=== PATIENT | female | born 1995 | race Hispanic/Latino ===

== ENCOUNTER 2021-02-19 05:09 | Inpatient (IN) | payer OTHER ==
[2021-02-19] VITALS (57 sets, daily range): BP systolic 113–186; BP diastolic 56–96
[~2021-02-19] VITALS: Ht 152.4 cm; Wt 68.2 kg
[2021-02-19] MEDS ORDERED: OXYTOCIN INJ 10 UNITS/ML VIAL (J2590) IV PRN (06:20)
[2021-02-19] MEDS ORDERED: OXYTOCIN DRIP 30 UNITS in IV 1 EA IV PRN ×4 (06:20)
[2021-02-19] MEDS ORDERED: METHYLERGONOVINE MALEATE 0.2 MG/ML VIAL (J2210) IM PRN (06:20)
[2021-02-19] MEDS ORDERED: LACTATED RINGER'S 1000 ML IV ONE (06:20)
[2021-02-19 06:47] LABS: HEMATOCRIT 39.4 % (36.0-47.0); HEMOGLOBIN 13.6 g/dl (12.0-15.5); MEAN CORPUSCULAR HEMOGLOBIN 31.3 pg (27.0-33.0); MEAN CORPUSCULAR HGB CONC 34.5 g/dl (32.0-36.5); MEAN CORPUSCULAR VOLUME 90.8 fl (80.0-96.0); PLATELET COUNT, AUTOMATED 202 10^3/uL (150-450); RED BLOOD COUNT 4.34 10^6/uL (4.00-5.40); WHITE BLOOD COUNT 12.1 10^3/uL (4.0-10.0)
[2021-02-19] MEDS ORDERED: PRENTAB9 PO (06:57)
[2021-02-19] MEDS ORDERED: FERR325T3 PO (06:58)
[2021-02-19] MEDS ORDERED: FENTANYL 2MCG/ML ROPIVACAINE 0.2% IN 0.9% NACL 100ML IVBAG As Ordered ONE (07:14)
[2021-02-19] MEDS ORDERED: FIORICET TAB PO ONE (07:50)
[2021-02-19] MEDS ORDERED: ONDANSETRON 4MG/2ML VIAL IV ONE (07:50)
[2021-02-19] MEDS: LR 1,000 ML IV SCH ×3 (08:14→19:35)
--- NOTE | 2021-02-19 08:54 | HPEPDOC ---
Obstetrical History & Physical General Date of Admission Item Value Date Time White Blood Count 12.1 10^3/uL H 02/19/21 0620 Red Blood Count 4.34 10^6/uL 02/19/21 0620 Hemoglobin 13.6 g/dl 02/19/2120 Hematocrit 39.4 % 02/19/21619 Mean Corpuscular Volume 90.8 fl 02/19/21619 Mean Corpuscular Hemoglobin 31.3 pg 02/19/21619 Mean Corpuscular Hemoglobin Concent 34.5 g/dl 02/19/21619 Red Cell Distribution Width 13.5 % 02/19/21619 Platelet Count 202 10^3/uL 02/19/21 0620 Feb 19, 2021 at 06:17 Primary Care Physician: Adrian Blair MD History of Present Illness active contractions with show at 40.3 weeks Chief Complaint: Contractions, term Information Provided By: Patient Age: 25 : 3 Term: 0 Pre-term: 0 Abortions: 2 Livin Care Care: Good Care Number of Visits: 5 Dating Final EDC: Feb 14, 2021 Final EDC for Daily Update: Feb 14, 2021 LMP: May 04, 2020 Estimated Date of Confinement: Feb 14, 2021 EGA at Admission: 40.3 Antepartum Course Diagnos(e)s active labor post dates negative gbs Height (inches): 61 Pre- weight (lbs.): 142 Admission Weight (lbs.): 150 Change in Weight (lbs.): 8 Past Medical History Past Obstetrical History : Past Obstetrical History: [employer] History: No pertinent history, Spontaneous Past Medical History Medical History no medical issues Surgical History: Denies/None Family History Significant Family History: No pertinent family hx Social History Social history active duty non smoker no etoh no vaping no recreational drugs Marital Status: Family situation: Spouse/partner home Psychosocial History: No pertinent psych hx * Smoker: non-smoker Alcohol: Denies Drugs: denies Abuse Violence Screening Have you been hit/kicked/slapp: No Have you been sexually assault: No Imunizations Tdap status: current Influenza Status: current Allergies Coded Allergies: No Known Allergies (Unverified , 02/19/21) Medications Scheduled No.137/Iron/Folic Acd ( Vitamin Tablet) 1 Each Tablet, 1 TAB PO DAILY Miscellaneous Medications Ferrous Sulfate (Ferrous Sulfate) 325 Mg Tablet.dr, 325 MG PO Physical Examination Physical Examination GENERAL: Alert and oriented times three. BREAST: . ABDOMEN: Gravid and non-tender to touch. FETUS: Is vertex (VTX) by sterile vaginal examination (SVE), fetus is vertex (VTX) by Guzman. HEART RATE: Regular rate and rhythm. LUNGS: Clear to auscultation (CTA). EXTREMITIES: No edema. No clonus. Deep tendon reflexes (DTRs) + . Other physical findings normocephalic perrla atraumatic neck full range of motion chest hrr distal pulses symmetric, lungs cta no wheeze no rhonchii back no cva tenderness abdomen non tender sf height appropriate vertex no rash no lesions no puritis no arthralgia no myalgia no joint pain no bruising no bleeding no frequency no incontinence Vital Signs/I&O Vital Signs Date Time Temp Pulse Resp B/P (MAP) Pulse Ox O2 Delivery O2 Flow Rate FiO2 02/19/21 06:57 99.0 96 18 147/79 (101) Laboratory Data 24H LABS Laboratory Tests 2 02/19/21 06:20: Nucleated Red Blood Cells % (auto) 0.0 02/19/21 06:49: Serology Scanned Report Hepatitis B Testing CBC/BMP Laboratory Tests 02/19/21 06:20 Pertinent Laboratoy Data Blood Type: B+ RBC Antibody Screen: Negative HIV: Negative Hepatitis B: Negative Rapid Plasma Reagin: Nonreactive Rubella: Immune Varicella: Nonreactive Chlamydia/Gonorrhea: Negative Group B Streptococcus: Negative Cystic Fibrosis: Negative Anatomy Ultrasound Ultrasound Date: Jul 21, 2020 Placenta Location: Anterior Normal Anatomy: Yes Placenta Previa: No Steroid Therapy Steroid Therapy: No Vaginal Examination Dilation: 2cm Effacement: 50% Station: -3 Cervical Consistency: Soft Cervical Position: Posterior Presentation: Cephalic presentation Assessment Variability: Moderate Accelerations: Present Decelerations: None Tocometer Contractions: Yes Frequency: every 1-3 min. Duration: less than 60 seconds Strength: palpated as moderate Assessment/Plan Assessment 25year-old (G3 para (P)0at 40.3 weeks by 10,2-week ultrasound. Presents to Labor and Delivery (L&D) . Plan Admit and orient. Spot Welder Line and consent. Diet: .npo Group B Streptococcus (GBS) [negative]. Labs and intravenous (IV) per unit protocol. Counseled on Pitocin and induction of labor (IOL). Lactated Ringers (LR): Bolus 1000 mL, then at 125 mL/hr. Anticipate [normal spontaneous delivery ()]. C-S as appropriate. Labor and Delivery Counseling reviewed vaginal delivery spontaneous or assisted vaginal risk of hemorrhage infection perforation remote blood transfusion remote hysterectomy for life threatening condition forceps or vacuum for or maternal indications when immanent delivery is not able cs for maternal or ind ications augmentation tachysystole increase risk cs and admission nicu Adrian Blair MD Feb 19, 2021 08:11
[2021-02-19] MEDS ORDERED: FAMOTIDINE INJ 20MG/2ML VIAL (S0028 PER 1) IVP ONE (09:00)
[2021-02-19 09:03] LABS: TOTAL PROTEIN,RANDOM URINE 77.3 MG/DL (0.0-12.0)
[2021-02-19] MEDS ORDERED: MAG Sulf (L&D) 4 GM/100 ML 4 GM in IV 1 EA IV ONE (09:55)
--- NOTE | 2021-02-19 10:11 | IPNPDOC ---
Obstetrical Progress Note Date of Service Feb 19, 2021 Subjective 25 yo at 40w5d admitted for labor with new onset and ruled in for pre- eclampsia with severe features with mildly elevated BPs, headache that is unrelieved with Fioricet and IV fluid bolus, and elevated P/C ratio of 0.47. I discussed diagnosis with her and her spouse and recommendations to start magnesium sulfate IV. We discussed the side effects and indications for magnesium sulfate. She desires for epidural for pain management. She continues to have headache and denies chest pain, RUQ pain, and visual changes. Objective Vital Signs Date Time Temp Pulse Resp B/P (MAP) Pulse Ox O2 Delivery O2 Flow Rate FiO2 02/19/21 09:21 100 118/62 (80) 02/19/21 08:52 100.0 18 Assessment Heart Rate (FHR): 155 Variability: Moderate Accelerations: Present Decelerations: None Tocometer Contractions: Yes Frequency: irregular (every 5-7 minutes) Assessment and Plan Age: 25 : 3 Term: 0 Pre-term: 0 Abortions: 2 Livin Weeks & Days 40w5d Group B Streptococcus: Negative Additional Comments Assessment: IUP at 40w5d Pre-eclampsia with severe features Active labor Plan: Start magnesium sulfate IV Coordinate with anesthesia for epidural placement Plan to re-evaluate cervical exam once she is comfortable with her epidural Dr. Jain updated on patient status and agrees with the plan EMELIA ARBOLEDA CNM Feb 19, 2021 10:11
[2021-02-19] MEDS: MAG Sulf (OBGYN) 20GM/500ML 20,000 MG in IV 1 EA IV SCH ×2 (10:12→19:35)
[2021-02-19] MEDS ORDERED: ePHEDrine SULFATE 25 MG/5 ML(5MG/ML) SYRINGE IV PRN (10:45)
[2021-02-19] MEDS ORDERED: EPIDURAL/PCA KEYS XX PRN (10:45)
[2021-02-19] MEDS ORDERED: NALOXONE INJ 0.4MG/1ML VIAL (J2310 PER 1MG) IV PRN ×3 (10:45→17:54)
[2021-02-19] MEDS ORDERED: ONDANSETRON 4MG/2ML VIAL IV PRN ×3 (10:45→19:35)
[2021-02-19] MEDS ORDERED: EPIDURAL COMMENT XX SCH (10:45)
[2021-02-19] MEDS ORDERED: FENTANYL/ROPIVACAINE/NACL BAG 100 ML EPIDURAL SCH (10:45)
[2021-02-19] MEDS ORDERED: diphenhydrAMINE 50MG/ML VIAL (J1200) IV PRN ×2 (10:45→17:54)
[2021-02-19] MEDS ORDERED: REFRIGERATOR IV KEYS XX PRN (10:45)
[2021-02-19] MEDS ORDERED: LACTATED RINGER'S 1000 ML IV PRN (10:45)
--- NOTE | 2021-02-19 13:12 | IPNPDOC ---
Obstetrical Progress Note Date of Service Feb 19, 2021 Subjective 25 yo at 40w5d admitted for labor with pre-eclampsia. She is resting comfortably with her epidural. She has supportive family at the bedside. She denies headache, chest pain, RUQ pain, and visual changes. Objective Vital Signs Date Time Temp Pulse Resp B/P (MAP) Pulse Ox O2 Delivery O2 Flow Rate FiO2 02/19/21 11:37 98.1 105 118/66 (83) 02/19/21 08:52 18 Assessment Heart Rate (FHR): 150 Variability: Moderate Accelerations: None Decelerations: Variable Tocometer Contractions: Yes Frequency: regular (every 4-5 minutes) Sterile Vaginal Examination Dilation: 6 cm Effacement (%): 80% Station: -2 (-2 to -1) Cervical Consistency: Soft Cervical Position: Anterior Postion/Presentation: Cephalic presentation Assessment and Plan Age: 25 : 3 Term: 0 Pre-term: 0 Abortions: 2 Livin Weeks & Days 40w5d Status: Reassuring Group B Streptococcus: Negative Anticipate: Vaginal Delivery Additional Comments Will start EMELIA Rodríguez CNM Feb 19, 2021 13:00
[2021-02-19 13:15] LABS: ALT/SGPT 12 U/L (12-78); BILIRUBIN,TOTAL 0.2 MG/DL (0.2-1.0); CREATININE FOR GFR 0.72 MG/DL (0.55-1.30); GLOMERULAR FILTRATION RATE > 60.0 (>60); LDH LACTATE DEHYDROGENASE 153 U/L (84-246); URIC ACID 6.4 MG/DL (2.6-6.0)
[2021-02-19] MEDS ORDERED: OXYTOCIN DRIP 30 UNITS in IV 1 EA IV SCH (13:15)
--- NOTE | 2021-02-19 13:16 | IPNPDOC ---
Obstetrical Progress Note Date of Service Feb 19, 2021 Subjective 25 yo at 40w5d admitted for labor with pre-eclampsia with severe features. She is comfortable with her epidural. She has supportive family at the bedside. She reports that headache remains mild. She denies chest pain, RUQ pain, and visual changes. Objective Vital Signs Date Time Temp Pulse Resp B/P (MAP) Pulse Ox O2 Delivery O2 Flow Rate FiO2 02/19/21 10:50 125 138/93 (108) 02/19/21 08:52 100.0 18 AROM for clear fluid Assessment Heart Rate (FHR): 155 Variability: Moderate Accelerations: None Decelerations: Variable Tocometer Contractions: Yes Frequency: regular (every 3-6 minutes) Sterile Vaginal Examination Dilation: 6 cm Effacement (%): 80% Station: -2 Cervical Consistency: Soft Cervical Position: Anterior Postion/Presentation: Cephalic presentation Assessment and Plan Age: 25 : 3 Term: 0 Pre-term: 0 Abortions: 2 Livin Weeks & Days 40w5d Status: Reassuring Group B Streptococcus: Negative Anticipate: Vaginal Delivery EMELIA ARBOLEDA CNM Feb 19, 2021 11:25
[2021-02-19] MEDS ORDERED: ACETAMINOPHEN 500 MG TAB PO PRN (14:55)
[2021-02-19] MEDS ORDERED: AMPICILLIN SOD 2 GM in D5W MINI-BAG PLUS 100 ML IV SCH (16:00)
[2021-02-19] MEDS: D5W IV SCH (16:37)
[2021-02-19] MEDS: GENTAMICIN IV SCH (16:37)
--- NOTE | 2021-02-19 17:19 | IPNPDOC ---
Obstetrical Progress Note Date of Service Feb 19, 2021 Subjective To room for acceptance of care. Patient has pain with contractions and reports she has pressure. Objective Vital Signs Date Time Temp Pulse Resp B/P (MAP) Pulse Ox O2 Delivery O2 Flow Rate FiO2 02/19/21 16:29 129 144/83 (103) 02/19/21 15:31 103.8 02/19/21 14:19 20 Assessment Variability: Minimal Accelerations: Positive Decelerations: Early Heart Rate Tracing: Category II Tocometer Contractions: Yes Frequency: regular Sterile Vaginal Examination Dilation: 6 cm Effacement (%): 70% Station: -2 Cervical Consistency: Medium Cervical Position: Posterior Postion/Presentation: Cephalic presentation (by exam) Assessment and Plan Anticipate: Section Additional Comments Ms. Serrano is a 25yo at 40+3 who initially presented in early labor, she was then diagnosed with pre-eclampsia with severe features (severe range BPs >4h apart) and started on magnesium therapy (at 23SEP 1014). She was then diagnosed with intraamniotic infection (TLast ____, TFirst 23SEP 1419 101.5) and started on gentamicin at 23SEP at 1637 and ampicillin at 23SEP at 1522. She received tylenol for her fever. NST at this time is CAT II for persistent tachycardia in the 170s. She has intermittent variable and early decelerations and periods of minimal variability. Although this also resolves to tachycardia with moderate variability and accelerations. Her contractions are approx every 3 minutes. Her cervix was 6cm at 1120 and was ruptured at this time. Her pitocin was sta rted at 1320. On my exam the cervix remains 6cm at 6/75/-2 and feels swollen. The cervix remains mid to posterior. I discussed with the patient that she has met criteria for arrest of dilation at 6h in active labor without cervical change. We discussed the risks of proceeding in active labor (infection, sepsis, hemorrhage, fistula, etc) and the risks of (surgical risks). The patient would like to proceed with delivery. She is already on gent/amp will add clindamycin and plan for discontinuing after single dose of each after her procedure unless she remains febrile. Bicitra was ordered for GI prophylaxis. SCDs are on for DVT prophylaxis. Anesthesia notified at [id number]. SHAHRAM ATKINS DO Feb 19, 2021 17:19
[2021-02-19] MEDS ORDERED: BICITRA 30ML SOLN UDC PO ONE (17:35)
[2021-02-19] MEDS ORDERED: BUPIVACAINE HCL 0.25% 10ML VIAL SC SCH (17:35)
[2021-02-19] MEDS ORDERED: CLINDAMYCIN 900 MG/50 ML PREMIX BAG As Ordered ONE (17:39)
[2021-02-19] MEDS ORDERED: BICITRA 30ML SOLN UDC As Ordered ONE (17:39)
[2021-02-19] MEDS ORDERED: BUPIVACAINE HCL 0.25% 10ML VIAL As Ordered ONE (17:40)
--- NOTE | 2021-02-19 17:49 | ROOPDOC ---
[facility] Report Of Operation Report of Operation DATE OF PROCEDURE: 02/19/21 PREPROCEDURE DIAGNOSES: 40+5 weeks gestation, arrest of dilation, persistent category II heart tracing, intraamniotic infection, pre-eclampsia with severe features POSTPROCEDURE DIAGNOSES: same, delivered PROCEDURE PERFORMED: primary delivery SURGEON: Mike Atkins DO DEMO EVENT SPECIALIST: Marilyn Mcdonald MD ANESTHESIA: spinal ESTIMATED BLOOD LOSS: Approximately 500 mL. COMPLICATIONS: none REMARKS: none FINDINGS: normal appearing uterus, ovaries and fallopian tubes. A low transverse uterine incision was performed and the baby delivered atraumatically, 9/9, 3620g. Thick meconium was noted in the amniotic fluid. The uterus was closed in 2 layers. SPECIMENS REMOVED: placenta PROCEDURE NOTE: Ms. Serrano is a 25yo at 40+3 who initially presented in early labor, she was then diagnosed with pre-eclampsia with severe features (severe range blood pressures >4h apart) and started on magnesium therapy. She was then diagnosed with intraamniotic infection and started on gentamicin ampicillin. her induction proceeded with pitocin but she has since had a persistent category II heart rate tracing and has met criteria for arrest of dilation. The risks, benefits, and alteratives to were discussed and written consent obtained. She additionally received clindamycin and bicitra pre-operative. The patient was taken to the OR where she was given spinal anesthesia, as her epidural was not functioning well. She was positioned supine with her arms out and a left tilt. A queen was placed in the bladder. The abdomen was prepped and draped in a sterile fashion. The anesthesia was tested to be adequate. A final time out was performed. A scalpel was used make a Pfannenstiel incision. The incision was carried to the fascia which was then scored. The curved diallo scissors were used to extend the fascial incision in a curvilinear fashion. The superior fascial edge was grasped with the koker clamps and the muscle dissected from the fascia with the scalpel and blunt dissection. The same procedure was repeated on the inferior fascial edge. The muscles were bluntly and the peritoneum entered bluntly. The lower uterine segment was identified and the bladder blade was placed. The bladder reflection was elevated and a bladder flap was made with the metzaumbaum scissors and blunt dissection. The bladder blade was replaced. A transverse incision was made in the lower uterine segment and extended bluntly. Thick meconium was noted in the amniotic fluid. The head was then elevated to the hysterotomy and the bladder blade removed. With the assistance of abdominal pressure the baby was delivered and had sponta neous movement and cry. The baby was then handed to the pediatrics team. The cord was clamped x2 and cut. Cord blood and gasses were obtained. The placenta was then delivered via manual extraction and was in-tact. The uterus was exteriorized and debris swept from inside with a moist lap. The hysterotomy was then closed with 0-monocryl in a running locking fashion. A horizontal imbricating layer was then made with 0-monocryl. The uterus was firm. Pool suction, irrigation, and a moist lap were used to clean the posterior cul-de-sac. The ovaries and fallopian tubes appeared normal. The uterus was replaced. The gutters were then cleaned with a moist lap and pool suction. The hysterotomy was re-inspected off tension and remained hemostatic. The muscles and fascia were inspected and were hemostatic. The peritoneum was reapproximated with 2-0 vicryl. The fascia was then re-approximated with 0-vicryl in a running fashion. It was palpated to have no defects on completion. The subcutaneous tissue was then irrigated. 0.25% marcaine was injected at the level of the fascia. It was re- approximated with 2-0 vicryl in 2 running layers. The skin was then closed with 3-0 monocryl in a running fashion. Dermabond was used to dress the incision. The sponge, lap, and needle counts were correct x2. There were no complications. The patient tolerated the procedure well. MIKE ATKINS DO Feb 19, 2021 17:49
[2021-02-19] MEDS ORDERED: NALBUPHINE HCL 10 MG/ML AMP (J2300) IV PRN (17:54)
[2021-02-19] MEDS ORDERED: METOCLOPRAMIDE INJ 10MG/2ML VIAL (J2765 PER 1) IV PRN ×2 (17:54→19:35)
[2021-02-19] MEDS ORDERED: CLINDAMYCIN 900 MG in IV 1 EA IV SCH (18:00)
[2021-02-19] MEDS ORDERED: KETOROLAC 60MG 2ML VIAL As Ordered ONE (18:15)
[2021-02-19] MEDS ORDERED: OXYTOCIN 30 UNITS IN 0.9% NaCl 500ML IV BAG (J2590) As Ordered ONE (18:15)
[2021-02-19] MEDS ORDERED: ONDANSETRON 4MG/2ML VIAL As Ordered ONE (18:15)
[2021-02-19] MEDS ORDERED: MORPHINE PRES-FREE INJ 10 MG/10 ML VIAL (J2274) As Ordered ONE (18:15)
[2021-02-19] MEDS ORDERED: TRANEXAMIC ACID 100 MG/ML 10ML VIAL As Ordered ONE (18:15)
[2021-02-19] MEDS ORDERED: PHENYLephrine 500MCG 5ML (100MCG/ML) SYRINGE As Ordered ONE ×2 (18:15→18:16)
[2021-02-19] MEDS ORDERED: dexameTHASONE 4 MG/ML 1ML VIAL (J1100 PER 1MG) As Ordered ONE (18:15)
[2021-02-19] MEDS ORDERED: METOCLOPRAMIDE INJ 10MG/2ML VIAL (J2765 PER 1) As Ordered ONE (18:27)
[2021-02-19 18:28] LABS: CORD GAS ABE A -3.2; CORD GAS HCO3 A 23.3 MEQ/L; CORD GAS O2 SAT A 44.3 %; CORD GAS PCO2 A 47.1 mmHg; CORD GAS PH A 7.313 UNITS; CORD GAS SBC A 20.5 MEQ/L; CORD GAS TCO2 A 24.8 MEQ/L
[2021-02-19 18:32] LABS: CORD GAS ABE V -6.6; CORD GAS O2 SAT V 91.3 %; CORD GAS PCO2 V 33.6 mmHg; CORD GAS PH V 7.346 UNITS; CORD GAS PO2 V 53.1 mmHg
--- NOTE | 2021-02-19 18:57 | POST-OPPD ---
Postoperative Procedure Note Date Of Procedure: Feb 19, 2021 DATE OF PROCEDURE: 02/19/21 PREPROCEDURE DIAGNOSES: 40+5 weeks gestation, arrest of dilation, persistent category II heart tracing, intraamniotic infection, pre-eclampsia with severe features POSTPROCEDURE DIAGNOSES: same, delivered PROCEDURE PERFORMED: primary delivery SURGEON: Mike Moyer DO GUARD DRIVER: Marilyn Mcdonald MD ANESTHESIA: spinal ESTIMATED BLOOD LOSS: Approximately 500 mL. COMPLICATIONS: none REMARKS: none FINDINGS: normal appearing uterus, ovaries and fallopian tubes. A low transverse uterine incision was performed and the baby delivered atraumatically, 9/9, 3620g. Thick meconium was noted in the amniotic fluid. The uterus was closed in 2 layers. SPECIMENS REMOVED: placenta WILBERTMIKE DO Feb 19, 2021 18:57
[2021-02-19] MEDS ORDERED: DOCUSATE SODIUM 100MG CAPSULE PO PRN (19:00)
[2021-02-19] MEDS ORDERED: TRANEXAMIC ACID INJection 1,000 MG in NS 100 ML IV ONE (19:00)
[2021-02-19] MEDS ORDERED: PERCOCET 5MG/325MG TAB PO PRN (19:35)
[2021-02-19] MEDS ORDERED: LR 1,000 ML IV SCH (19:35)
[2021-02-19] MEDS ORDERED: fentaNYL 100 MCG/2 ML INJECTION (J3010) IV PRN (19:35)
[2021-02-19] MEDS: ACETAMINOPHEN 500 MG TAB PO SCH (19:51)
[2021-02-19] MEDS ORDERED: AMPICILLIN SOD 2 GM in D5W MINI-BAG PLUS 100 ML IV ONE (21:30)
[2021-02-19] MEDS ORDERED: oxyCODONE 5MG TAB As Ordered ONE (21:44)
[2021-02-19] MEDS: oxyCODONE 5MG TAB PO PRN (21:48)
[2021-02-20] VITALS (20 sets, daily range): BP systolic 113–143; BP diastolic 57–100
[2021-02-20] MEDS ORDERED: CLINDAMYCIN 900 MG in IV 1 EA IV ONE (02:30)
[2021-02-20] MEDS: MAG Sulf (OBGYN) 20GM/500ML 20,000 MG in IV 1 EA IV SCH ×2 (03:23→13:53)
[2021-02-20] MEDS: LR 1,000 ML IV SCH ×3 (03:24→19:19)
[2021-02-20] MEDS ORDERED: oxyCODONE 5MG TAB As Ordered ONE (05:12)
[2021-02-20] MEDS: oxyCODONE 5MG TAB PO PRN ×2 (05:15→17:45)
[2021-02-20] MEDS ORDERED: medroxyPROGESTERone ACET IM SUSP 150 MG/ML VIAL (J1050) IM SCH (06:40)
--- NOTE | 2021-02-20 06:40 | IPNPDOC ---
Progress Note Date of Service: Feb 20, 2021 Day#: 1 Progress Note Ms. Serrano is a 25yo POD1 after a PLTCD for arrest of dilation who in itially presented in early labor, she was then diagnosed with pre-eclampsia with severe features (severe range BPs >4h apart) and started on magnesium therapy (at 23SEP 1014). She was then diagnosed with intraamniotic infection (TLast 02/19 1530, TFirst 23SEP 1419 101.5) and started on gentamicin at 23SEP at 1637 and ampicillin at 23SEP at 1522. She received tylenol for her fever. She is on seizure precautions and magnesium at this time and has a queen in place. She is tolerating a clear liquid diet. The baby is in the NICU. She reports her bleeding is light and that her pain is well controlled. She denied n/v/d, cp, sob, davila, visual changes, f/c. OBJECTIVE: VITAL SIGNS: Within normal limits, afebrile. Alert and oriented times three. Breath sounds clear to auscultation. Heart rate: Regular rate and rhythm, no murmurs, rubs or gallops. Abdomen: Fundus firm at U-2. Soft, NTTP. [Minimal] lochia per pt. DTRs 3+ in BL LE/UE ASSESSMENT: [Ms. Serrano is a 25yo POD1 after a PLTCD for arrest of dilation who initially presented in early labor, she was then diagnosed with pre-eclampsia with severe features (severe range BPs >4h apart) and started on magnesium therapy (at 23SEP 1014). She was then diagnosed with intraamniotic infection (TLast 02/19 1530, TFirst 23SEP 1419 101.5) and started on gentamicin at 23SEP at 1637 and ampicillin at 23SEP at 1522. She received tylenol for her fever. She has no si/sx of pre-e at this time and her pre-e labs were normal. Her BPs are normotensive to mild range but not requiring medication. She remains hyperreflexive. She has been afrebrile since her surgery and has recieved a dose of ampicillin and clindamycin since the surgery and is complete. She has one dose of gentamycin remaining at 1630 tonight. PLAN: 1. Proceed with 24h of magnesium 2. seizure precautions, queen for output monitoring, clear liquid diet 3. Tylenol and Motrin for pain. oxycodone for breakthrough 4. continue treatment for IAI with final dose of gentamycin tonight unless refevers 5. Follow up on urine culture 6. Encourage breast feeding and ambulation. 7. depo provera ordered for contraception 8. Routine PP visit in 72h and 7d, for a BP check, 2wk for an incision check, and 6 weeks in clinic. 9. Discussed return precautions at length. VS, I&O, 24H, Fishbone Vital Signs/I&O Vital Signs Date Time Temp Pulse Resp B/P (MAP) Pulse Ox O2 Delivery O2 Flow Rate FiO2 02/20/21 05:15 16 02/20/21 02:57 85 133/83 (100) 02/20/21 02:00 97.6 02/19/21 21:48 97 Room Air I&O- Last 24 Hours up to 6 AM 02/20/21 06:00 Intake Total 2848.5 ml Output Total 4325 ml Balance -1476.5 ml Laboratory Data 24H LABS Laboratory Tests 2 02/19/21 06:49: Serology Scanned Report Hepatitis B Testing 02/19/21 08:25: Urine Random Creatinine 164.0, Urine Random Total Protein 77.3H 02/19/21 17:49: Cord Arterial Blood pH 7.313, Cord Arterial Blood PCO2 47.1, Cord Arterial Blood PO2 20.0, Cord Arterial Blood HCO3 23.3, Cord Arterial Blood Total CO2 24.8, Cord Arterial Blood Base Excess -3.2, Cord Arterial Base Excess (Standard 20.5, Cord Arterial Bld Oxygen Saturation 44.3, Cord Venous Blood pH 7.346, Cord Venous Blood PCO2 33.6, Cord Venous Blood PO2 53.1, Cord Venous Blood HCO3 18.0, Cord Venous Blood Total CO2 19.0, Cord Venous Base Excess (Actual) -6.6, Cord Venous Base Excess (Standard) 19.0, Cord Venous Blood Oxygen Saturation 91.3 Microbiology Microbiology 02/19/21 Urine Culture, Received Pending 02/19/21 Respiratory Virus Panel (PCR) ([facility]) - Final, Complete SHAHRAM ATKINS DO Feb 20, 2021 06:40
[2021-02-20] MEDS: ACETAMINOPHEN 500 MG TAB PO SCH ×4 (07:42→23:36)
[2021-02-20] MEDS ORDERED: HOME MED LIST COMPLETE! XX SCH (08:50)
[2021-02-20] MEDS ORDERED: INFLUENZA QUADRIVALENT PF VACCINE 0.5ML SYRINGE IM ONE (09:00)
[2021-02-20] MEDS ORDERED: diphenhydrAMINE 25MG CAP PO PRN (09:30)
[2021-02-20] MEDS: PRENATAL VITAMINS CHEWABLE TABLET PO SCH (09:51)
[2021-02-20] MEDS: IBUPROFEN 800 MG TAB PO SCH ×2 (09:52→18:10)
[2021-02-20] MEDS: SIMETHICONE 80MG CHEW TAB PO PRN (14:38)
[2021-02-20] MEDS: D5W IV SCH (17:35)
[2021-02-20] MEDS: GENTAMICIN IV SCH (17:35)
[2021-02-21] VITALS (7 sets, daily range): BP systolic 105–144; BP diastolic 55–82
[2021-02-21] MEDS: IBUPROFEN 800 MG TAB PO SCH ×3 (02:05→17:12)
[2021-02-21] MEDS: ACETAMINOPHEN 500 MG TAB PO SCH ×3 (05:31→17:12)
--- NOTE | 2021-02-21 05:46 | IPNPDOC ---
Progress Note Date of Service: Feb 21, 2021 Progress Note Ms. Serrano is a 25yo POD2 after a PLTCD for arrest of dilation who initially presented in early labor, she was then diagnosed with pre-eclampsia with severe features (severe range BPs >4h apart) and started on magnesium therapy (at 23SEP 1014). She was then diagnosed with intraamniotic infection (TLast 02/19 1530, TFirst 23SEP 1419 101.5) and started on gentamicin at 23SEP at 1637 and ampicillin at 23SEP at 1522. She received tylenol for her fever. She has now been afebrile since POD1. Magnesium was stopped last evening and her queen has been removed. She is tolerating a regular diet. The baby is in the NICU. She reports her bleeding is light and that her pain is well controlled. She denied n/v/d, cp, sob, davila, visual changes, f/c. OBJECTIVE: VITAL SIGNS: Within normal limits, afebrile. Alert and oriented times three. nonlabored breathing Heart rate: Regular rate Abdomen: Fundus firm at U-2. Soft, NTTP. +Bowel sounds [Minimal] lochia per pt. DTRs 3+ in BL LE ASSESSMENT: [Ms. Serrano is a 25yo POD2 after a PLTCD for arrest of dilation, diagnosed with pre-eclampsia with severe features (severe range BPs >4h apart), s/p magnesium therapy, also with intraamniotic infection in labor s/p gentamicin and ampicillin. She has no si/sx of pre-e at this time and her pre-e labs were normal. Her BPs are normal range. She has been afrebrile since her surgery and has recieved a dose of ampicillin and clindamycin since the surgery and is complete. PLAN: - Discharge tomorrow (72 hours ) if remaining stable - Regular diet - Tylenol and Motrin for pain. oxycodone for breakthrough - Follow up on urine culture (pending) - Encourage breast feeding and ambulation. - depo provera ordered for contraception - Routine PP visit within 7d for a BP check, 2wk for an incision check, and 6 weeks in clinic. - Discussed return precautions at length. VS, I&O, 24H, Fishbone Vital Signs/I&O Vital Signs Date Time Temp Pulse Resp B/P (MAP) Pulse Ox O2 Delivery O2 Flow Rate FiO2 02/21/21 02:05 98.8 89 18 139/70 (93) 100 02/20/21 23:15 Room Air I&O- Last 24 Hours up to 6 AM 02/21/21 05:59 Intake Total 2163.5 ml Output Total 4525 ml Balance -2361.5 ml Laboratory Data Microbiology Microbiology 02/19/21 Urine Culture, Received Pending 02/19/21 Respiratory Virus Panel (PCR) ([facility]) - Final, Complete RADHA BAILEY DO Feb 21, 2021 05:38
[2021-02-21] MEDS: PRENATAL VITAMINS CHEWABLE TABLET PO SCH (09:00)
[2021-02-21 11:14] LABS: HEMATOCRIT 28.7 % (36.0-47.0); HEMOGLOBIN 9.6 g/dl (12.0-15.5); MEAN CORPUSCULAR HEMOGLOBIN 31.2 pg (27.0-33.0); MEAN CORPUSCULAR HGB CONC 33.4 g/dl (32.0-36.5); MEAN CORPUSCULAR VOLUME 93.2 fl (80.0-96.0); PLATELET COUNT, AUTOMATED 187 10^3/uL (150-450); RED BLOOD COUNT 3.08 10^6/uL (4.00-5.40); WHITE BLOOD COUNT 13.2 10^3/uL (4.0-10.0)
[2021-02-21] MEDS: oxyCODONE 5MG TAB PO PRN ×2 (12:35→18:44)
[2021-02-21] MEDS: SIMETHICONE 80MG CHEW TAB PO PRN (17:35)
[2021-02-21] MEDS ORDERED: SLF 3 ML SYR IV PRN (18:00)
[2021-02-21] MEDS: SLF 3 ML SYR IV SCH (22:00)
[2021-02-22] MEDS: ACETAMINOPHEN 500 MG TAB PO SCH ×2 (00:05→05:51)
[2021-02-22] MEDS: IBUPROFEN 800 MG TAB PO SCH ×2 (01:40→09:57)
[2021-02-22 02:00] VITALS: BP 133/83
[2021-02-22] MEDS: SLF 3 ML SYR IV SCH (05:51)
[2021-02-22 06:08] VITALS: BP 133/85
[2021-02-22] MEDS: SIMETHICONE 80MG CHEW TAB PO PRN (08:44)
[2021-02-22] MEDS: oxyCODONE 5MG TAB PO PRN (08:45)
[2021-02-22] MEDS: PRENATAL VITAMINS CHEWABLE TABLET PO SCH (09:00)
--- NOTE | 2021-02-22 09:51 | OBDS ---
[facility] Obstetrical Discharge Sum. Obstetrical Discharge Summary Date: Feb 22, 2021 Anesthesia: Regional Anesthesia A/P, Post Course List any complications Admission diagnosis: INDUCTION OF LABOR AT 40W5D Discharge diagnosis: 1. pre-eclampsia with severe features (severe range BPs >4h apart), s/p magnesium therapy 2. intraamniotic infection (TLast 02/19 1530, TFirst 23SEP 1419 101.5) and started on gentamicin at 23SEP at 1637 and ampicillin at 23SEP at 1522 Condition at Discharge: STABLE Discharge Instructions: Home Activity: PELVIC REST Diet: REGULAR Medications: - Tylenol and Motrin for pain. oxycodone for breakthrough Follow-up: Routine PP visit within 7d for a BP check, 2wk for an incision check, and 6 weeks in clinic. Other: Zach is a 25yo POD3 after a PLTCD for arrest of dilation who initially presented in early labor, she was then diagnosed with pre-eclampsia with severe features (severe range BPs >4h apart) and started on magnesium therapy (at 23SEP 1014). She was then diagnosed with intraamniotic infection (TLast 02/19 1530, TFirst 23SEP 1419 101.5) and started on gentamicin at 23SEP at 1637 and ampicillin at 23SEP at 1522. She received tylenol for her fever. She has now been afebrile since POD1. this morning, she reports gas pain that is radiating to her shoulders, which is improving with walking and simethicone. She is tolerating a regular diet and passing flatus. The baby is in the NICU. She reports her bleeding is light and that her pain is well controlled. She denied n/v/d, cp, sob, davila, visual changes, f/c. OBJECTIVE: VITAL SIGNS: Within normal limits, afebrile. Alert and oriented times three. nonlabored breathing Heart rate: Regular rate Abdomen: Fundus firm at U-2. Soft, NTTP. +Bowel sounds ASSESSMENT: [Ms. Serrano is a 25yo POD3 after a PLTCD for arrest of dilation, diagnosed with pre-eclampsia with severe features (severe range BPs >4h apart), s/p magnesium therapy, also with intraamniotic infection in labor s/p gentamicin and ampicillin. no s/s of infection, anemia or pree. meeting discharge criteria. IMTIAZ COLVIN MD Feb 22, 2021 09:51
[2021-02-22 10:00] VITALS: BP 134/92
== END 2021-02-22 14:10 | disposition home or self-care (01) | DRG 771 ==
LOC: M LDO 05:09 → M LDI 06:17 → M OBS 02-21 00:21
PROVIDERS: ADMIT Obstetrics & Gynecology; ATTEND Obstetrics & Gynecology
PROC: 10907ZC Drainage of Amniotic Fluid, Therapeutic from Products of Conception, Via Natural or Artificial Opening (ICD-10-PCS; 2021-02-19)
PROC: 10D00Z1 Extraction of Products of Conception, Low, Open Approach (ICD-10-PCS; principal; 2021-02-19 05:40)
DX: O48.0 Post-term pregnancy (principal); O41.1030 Infection of amniotic sac and membranes, unspecified, third trimester, not applicable or unspecified; Z3A.40 40 weeks gestation of pregnancy; Z37.0 Single live birth; O14.14 Severe pre-eclampsia complicating childbirth; O76 Abnormality in fetal heart rate and rhythm complicating labor and delivery; O62.0 Primary inadequate contractions; O77.0 Labor and delivery complicated by meconium in amniotic fluid